=== PATIENT | female | born 1960 | race Caucasian/White ===

== ENCOUNTER 2020-10-21 01:11 | Emergency (ER) | payer OTHER ==
[~2020-10-21] VITALS: Ht 165.1 cm; Wt 136.1 kg
[2020-10-21] MEDS ORDERED: EFFER-K 10 MEQ10 ME1 PO (01:23)
[2020-10-21] MEDS ORDERED: TRIAMTERENE-HC1 EAC3 PO (01:24)
[2020-10-21] MEDS ORDERED: OMEPRAZOLE 20 M20 M1 PO (01:24)
[2020-10-21] MEDS ORDERED: LIPITOR40 MG PO (01:25)
[2020-10-21] MEDS ORDERED: ZYRTEC10 M5 PO (01:25)
[2020-10-21] MEDS ORDERED: NORVASC10 MG PO (01:26)
[2020-10-21] MEDS ORDERED: DICLOFENAC SODI75 MG PO (01:26)
[2020-10-21] MEDS ORDERED: MELOXICAM15 MG PO (01:26)
[2020-10-21] MEDS ORDERED: LEVO-T75 MCG PO (01:26)
[2020-10-21] MEDS ORDERED: PHENTERMINE HCL30 MG PO (01:27)
[2020-10-21] MEDS ORDERED: FUROSEMIDE 20 M20 MG PO (01:27)
[2020-10-21 03:13] VITALS: BP 130/59
== END 2020-10-21 03:13 | disposition home or self-care (01) ==
LOC: ER 01:11
DX: G89.18 Other acute postprocedural pain (principal); K21.9 Gastro-esophageal reflux disease without esophagitis; E78.00 Pure hypercholesterolemia, unspecified; I11.0 Hypertensive heart disease with heart failure; M19.90 Unspecified osteoarthritis, unspecified site; E03.9 Hypothyroidism, unspecified; Z88.2 Allergy status to sulfonamides